=== PATIENT | female | born 1980 | race Caucasian/White ===

== ENCOUNTER → 2018-07-21 | Outpatient (CLI) | payer BC ==
--- NOTE | 2018-07-21 12:13 | MM ---
Reason for exam: screening (asymptomatic). Baseline mammogram. History: Took hormonal contraceptives for 10 years. Physical Findings: Nurse Summary: 2 x 3cm nodule in the right breast at 12 o'clock, 1.5cm nodule in the right breast at 3 o'clock, 2 x 3cm nodule in the left breast at 12 o'clock, 1 x 5cm nodule in the left breast at 8 o'clock and various palpable noted at 3 o'clock (nurse ts). MG 3D Screening Mammo W/Cad Bilateral CC and MLO view(s) were taken. The breast tissue is extremely dense which could obscure a lesion on mammography. There are benign appearing round, oval, circumscribed masses throughout both breasts, at least 6 on the right and 4 on the left. These will be further characterized with ultrasound. These results were verbally communicated with the patient and result sheet given to the patient on 07/21/18. ASSESSMENT: Incomplete: need additional imaging evaluation, BI-RAD 0 RECOMMENDATION: Ultrasound of both breasts.
--- NOTE | 2018-07-21 12:17 | USB ---
Reason for exam: additional evaluation requested from abnormal screening. History: Took hormonal contraceptives for 10 years. Physical Findings: Breast exam preformed at baseline screening. US Breast Workup [place] Right complete breast ultrasound includes all four quadrants, the retroareolar region and axilla. Finding demonstrates a 2.9 x 3.8 x 2.2cm cystic cluster at 1 o'clock, a 0.7 x 0.6 x 0.7cm cystic lesion with thin septation at 2 o'clock and a 2.0 x 2.1 x 1.1cm mixed lesion at 2 o'clock. Left complete breast ultrasound includes all four quadrants, the retroareolar region and axilla. Finding demonstrates three mixed lesions measuring 1.8 x 2.2 x 0.9cm at 1 o'clock, 0.7 x 0.9 x 0.8cm at 2 o'clock, 1.6 x 1.1 x 0.4cm at 8 o'clock and 1.8 x 1.7 x 0.8cm at 9 o'clock. All demonstrate increase through transmission, complicated cysts. These results were verbally communicated with the patient and result sheet given to the patient on 07/21/18. ASSESSMENT: Benign, BI-RAD 2 RECOMMENDATION: Return to routine screening mammogram schedule for both breasts.
== END | disposition home or self-care (01) ==
LOC: RADMAMWWP 09:38
PROVIDERS: ATTEND Obstetrics & Gynecology
DX: Z12.31 Encounter for screening mammogram for malignant neoplasm of breast (principal); R92.8 Other abnormal and inconclusive findings on diagnostic imaging of breast
CPT/HCPCS: 77063; 77067

== ENCOUNTER → 2020-08-15 | Outpatient (CLI) | payer BC ==
--- NOTE | 2020-08-16 10:00 | MM ---
Reason for exam: screening (asymptomatic). Last mammogram was performed 2 years and 1 month ago. History: Took hormonal contraceptives for 10 years. Physical Findings: A clinical breast exam by your physician is recommended on an annual basis and results should be correlated with mammographic findings. MG 3D Screening Mammo W/Cad Bilateral CC and MLO view(s) were taken. Prior study comparison: July 21, 2018, bilateral MG 3d screening mammo w/cad. The breast tissue is extremely dense which could obscure a lesion on mammography. Finding: There is a 30 mm circumscribed round mass in the posterior position of the right breast and additional smaller newer round lesions right breast. There is a chronic nodularity in the left breast. ASSESSMENT: Incomplete: need additional imaging evaluation, BI-RAD 0 RECOMMENDATION: Ultrasound of both breasts. [facility] will attempt to contact patient to return for ultrasound.
== END | disposition home or self-care (01) ==
LOC: RADMAMWWP 10:29
PROVIDERS: ATTEND Obstetrics & Gynecology
DX: Z12.31 Encounter for screening mammogram for malignant neoplasm of breast (principal)
CPT/HCPCS: 77063; 77067

== ENCOUNTER → 2020-08-22 | Outpatient (CLI) | payer BC ==
--- NOTE | 2020-08-23 08:50 | USB ---
Reason for exam: additional evaluation requested from abnormal screening. History: Took hormonal contraceptives for 10 years. Physical Findings: Nurse Summary: nodular throughout, patient reports cysts history (nurse db). US Breast BILAT Right complete breast ultrasound includes all four quadrants, the retroareolar region and axilla. Finding demonstrates a 1.4 x 1.2 x 0.5cm axilla node, a 0.9 x 0.9 x 0.6cm oval, hypoechoic, circumscribed lesion at 1 o'clock debris filled cyst or fibroadenoma, 6 month follow up recommended, a 2.0 x 2.5 x 1.0cm oval, cystic lesion at 2 o'clock, a 2.6 x 3.1 x 1.3cm oval, cystic lesion at 3 o'clock, duct ectasia at 8 o'clock, a 1.2 x 1.2 x 0.9cm oval, cystic lesion at 10 o'clock and a 2.9 x 2.0 x 1.0cm oval, cystic cluster at 11 o'clock. Left complete breast ultrasound includes all four quadrants, the retroareolar region and axilla. Finding demonstrates a 1.3 x 1.7 x 0.7cm oval, cystic cluster at 2 o'clock, a 1.2 x 0.9 x 0.7cm oval, cystic cluster at 9 o'clock, a 0.8 x 0.9 x 0.8cm oval, cystic lesion at 10 o'clock, debris and a 1.3 x 0.8 x 0.4cm oval, cystic cluster at 10 o'clock. These results were verbally communicated with the patient and result sheet given to the patient on 08/22/20. ASSESSMENT: Probably benign, BI-RAD 3 RECOMMENDATION: Ultrasound of the right breast in 6 months. (1 o'clock)
== END | disposition home or self-care (01) ==
LOC: RADUSWWP 14:54
PROVIDERS: ATTEND Obstetrics & Gynecology
DX: R92.8 Other abnormal and inconclusive findings on diagnostic imaging of breast (principal)

== ENCOUNTER → 2021-02-23 | Outpatient (CLI) | payer BC ==
--- NOTE | 2021-02-23 10:57 | USB ---
Reason for exam: follow-up at short interval from prior study. History: Took hormonal contraceptives for 10 years. Physical Findings: Nurse did not find any significant physical abnormalities on exam. US Breast Limited RT Technologist: Melissa Irene Right limited breast ultrasound including focal area of concern, retroareolar and axilla demonstrates a 0.8 x 0.8 x 0.6cm circumscribed lesion at 1 o'clock, slightly smaller and a 3.0 x 3.2 x 1.2cm oval, cystic lesion at 2 o'clock. Scanned 12-2 o'clock. Multiple cysts. These results were verbally communicated with the patient and result sheet given to the patient on 02/23/21. ASSESSMENT: Probably benign, BI-RAD 3 RECOMMENDATION: Follow-up diagnostic mammogram of both breasts in 6 months. Ultrasound of the right breast in 6 months. Manage patient on a clinical basis.
== END | disposition home or self-care (01) ==
LOC: RADUSWWP 09:30
PROVIDERS: ATTEND Obstetrics & Gynecology
DX: N60.01 Solitary cyst of right breast (principal)

== ENCOUNTER → 2021-09-03 | Outpatient (CLI) | payer BC ==
--- NOTE | 2021-09-04 08:53 | MM ---
Reason for exam: additional evaluation requested from prior study. Last mammogram was performed 1 year and 1 month ago. History: Took hormonal contraceptives for 10 years. Physical Findings: A clinical breast exam by your physician is recommended on an annual basis and results should be correlated with mammographic findings. MG 3D Diag Mammo W/Cad [place] Bilateral CC and MLO view(s) were taken. Prior study comparison: August 15, 2020, bilateral MG 3d screening mammo w/cad. July 21, 2018, bilateral MG 3d screening mammo w/cad. The breast tissue is heterogeneously dense. This may lower the sensitivity of mammography. There is chronic nodularity bilaterally. No significant new findings when compared with previous films. Results were given to the patient verbally at the time of the exam. ASSESSMENT: Incomplete: need additional imaging evaluation, BI-RAD 0 RECOMMENDATION: Ultrasound of the right breast.
--- NOTE | 2021-09-04 08:54 | USB ---
Reason for exam: additional evaluation requested from abnormal screening. History: Took hormonal contraceptives for 10 years. Physical Findings: A clinical breast exam by your physician is recommended on an annual basis and results should be correlated with mammographic findings. US Breast Limited RT Right limited breast ultrasound including focal area of concern, retroareolar and axilla demonstrates a 0.8 x 0.6 x 0.8cm mixed lesion at 1 o'clock, 5cm from nipple and a 4.0 x 1.4 x 3.6cm cystic lesion at 2 o'clock, 3cm from nipple. Multiple cystic areas. Results were given to the patient verbally at the time of the exam. ASSESSMENT: Benign, BI-RAD 2 RECOMMENDATION: Routine screening mammogram of both breasts in 1 year.
== END | disposition home or self-care (01) ==
LOC: RADMAMWWP 14:18
PROVIDERS: ATTEND Family Medicine
DX: R92.8 Other abnormal and inconclusive findings on diagnostic imaging of breast (principal)
CPT/HCPCS: 77062; 77066

== ENCOUNTER → 2022-09-04 | Outpatient (CLI) | payer BC ==
--- NOTE | 2022-09-05 07:33 | MM ---
Reason for Exam: Screening (asymptomatic). Last screening mammogram was performed 12 month(s) ago. Patient History: Menarche at age 15. First Full-Term at age 28. Patient has history of breast feeding. Patient used Hormonal Contraceptives for 10 years. Maternal uncle had breast cancer, age 47. Last menstrual period: 08/07/2022 Risk Values: Angeles 5 year model risk: 0.7%. NCI Lifetime model risk: 10.0%. Prior Study Comparison: 07/21/2018 Bilateral Screening Mammogram, [facility]. 08/15/2020 Bilateral Screening Mammogram, [facility]. 09/03/2021 Bilateral Diagnostic Mammogram, [facility]. Tissue Density: The breast tissue is extremely dense which could obscure a lesion on mammography. Findings: Analyzed By CAD. There is suggestion of new 14 mm obscured round mass just posterior to stable 9 mm round mass in the left breast cc slice 19. There are larger distinct masses in the right breast lower inner quadrant not clearly seen on most recent prior mammogram. Overall Assessment: Incomplete: need additional imaging evaluation, BI-RAD 0 Management: Diagnostic Breast Ultrasound of both breasts. Targeted bilateral breast ultrasound. Patient should continue monthly self-breast exams. A clinical breast exam by your physician is recommended on an annual basis. This exam should not preclude additional follow-up of suspicious palpable abnormalities. Note on Angeles scores and lifetime risk: 1. A Angeles score greater than 3% is considered moderate risk. If this is the case, consider specialist referral to assess eligibility for a risk reducing agent. 2. If overall lifetime risk for the development of breast cancer is 20% or higher, the patient may qualify for future screening with alternating mammogram and breast MRI. Electronically signed and approved by: Tam Weber M.D.
== END | disposition home or self-care (01) ==
LOC: RADMAMWWP 10:52
PROVIDERS: ATTEND Internal Medicine
DX: Z12.31 Encounter for screening mammogram for malignant neoplasm of breast (principal); Z80.3 Family history of malignant neoplasm of breast
CPT/HCPCS: 77063; 77067

== ENCOUNTER → 2022-09-19 | Outpatient (CLI) | payer BC ==
--- NOTE | 2022-09-19 12:44 | USB ---
Reason for Exam: Additional evaluation requested from abnormal screening. Patient History: Menarche at age 15. First Full-Term at age 28. Patient has history of breast feeding. Patient used Hormonal Contraceptives for 10 years. Maternal uncle had breast cancer, age 47. Risk Values: Angeles 5 year model risk: 0.7%. NCI Lifetime model risk: 10.0%. Technique: Method: Targeted. Prior Study Comparison: 08/15/2020 Bilateral Screening Mammogram, [facility]. 09/03/2021 Bilateral Diagnostic Mammogram, [facility]. 09/04/2022 Bilateral MG 3D screening mammo w/cad, [facility]. Findings: The lower inner quadrant of the right breast, the medial section of the breast of the left breast, the axilla of both breasts and the retroareolar of both breasts were scanned. Right: * Targeted ultrasound lower quadrant 3:00 to 6:00 including the subareolar region and axilla. * Dense tissues present throughout. * At the 3:00 position, 2 cm from the nipple, there is a benign 2.4 cm cyst. * An additional adjacent benign 8 mm cyst is present. * At the 5:00 position, 4 cm from the nipple, there is a hypoechoic lesion measuring 7 x 6 x 5 mm. There is a well-defined posterior wall with transmission. Suspected cyst with a either artifact or internal renal. * No other solid or cystic lesion. Left: * Targeted ultrasound medial half from 6:00 to 12:00 including the subareolar region and axilla. * At the 8:00 position, 6 cm from the nipple, there is an oval circumscribed hypoechoic area surrounded by dense tissue. Possible prominent fat lobule measuring 1.2 x 1.1 x 0.4 cm. * At the 9:00 position 5 cm from the nipple, there are a couple of benign clustered cysts present measuring 1.4 and 1.0 cm. * Couple additional benign cysts are present, for example, 12:00 position, 4 cm from the nipple measuring 1.1 cm. Overall Assessment: Benign, BI-RAD 2 Management: Screening Mammogram of both breasts in 1 year. A clinical breast exam by your physician is recommended on an annual basis and results should be correlated with mammographic findings. This exam should not preclude additional follow-up of suspicious palpable abnormalities. Results were given to the patient verbally at the time of exam. Electronically signed and approved by: Kostas Mary M.D. Radiologist
== END | disposition home or self-care (01) ==
LOC: RADUSWWP 10:48
PROVIDERS: ATTEND Internal Medicine
DX: R92.8 Other abnormal and inconclusive findings on diagnostic imaging of breast (principal); Z80.3 Family history of malignant neoplasm of breast

== ENCOUNTER → 2023-09-22 | Outpatient (CLI) | payer BC ==
--- NOTE | 2023-09-26 08:20 | MM ---
Reason for Exam: Screening (asymptomatic). Last screening mammogram was performed 12 month(s) ago. Patient History: Menarche at age 15. First Full-Term at age 28. Patient has history of breast feeding. Patient used Hormonal Contraceptives for 10 years. Maternal uncle had breast cancer, age 47. Last menstrual period: 08/23/2023 Risk Values: Angeles 5 year model risk: 0.7%. NCI Lifetime model risk: 9.9%. Prior Study Comparison: 08/15/2020 Bilateral Screening Mammogram, [facility]. 09/03/2021 Bilateral Diagnostic Mammogram, [facility]. 09/04/2022 Bilateral MG 3D screening mammo w/cad, [facility]. Tissue Density: The breasts are extremely dense, which lowers the sensitivity of mammography. Findings: Analyzed By CAD. Right breast: Stable fibroglandular tissue. There is no suspicious group of microcalcifications or new suspicious mass. Left breast: There is no suspicious group of microcalcifications or new suspicious mass. Overall Assessment: Benign, BI-RAD 2 Management: Screening Mammogram of both breasts in [address] [facility] will attempt to contact patient to return for supplemental views and ultrasound if indicated. Patient should continue monthly self-breast exams. A clinical breast exam by your physician is recommended on an annual basis. This exam should not preclude additional follow-up of suspicious palpable abnormalities. Note on Angeles scores and lifetime risk: 1. A Angeles score greater than 3% is considered moderate risk. If this is the case, consider specialist referral to assess eligibility for a risk reducing agent. 2. If overall lifetime risk for the development of breast cancer is 20% or higher, the patient may qualify for future screening with alternating mammogram and breast MRI. Electronically signed and approved by: Jacobo Jules DO
== END | disposition home or self-care (01) ==
LOC: RADMAMWWP 09:25
PROVIDERS: ATTEND Family Medicine
DX: Z12.31 Encounter for screening mammogram for malignant neoplasm of breast (principal); Z80.3 Family history of malignant neoplasm of breast
CPT/HCPCS: 77063; 77067

== ENCOUNTER → 2024-07-14 | Outpatient (CLI) | payer BC ==
--- NOTE | 2024-07-14 07:54 | US ---
EXAMINATION TYPE: US abdomen limited DATE OF EXAM: 07/14/2024 COMPARISON: NONE CLINICAL INDICATION: Female, 44 years old with history of R74.8 ELEVATED LIVER ENZYMES; Elevated live r enzymes TECHNIQUE: Grayscale and color Doppler imaging of the right upper quadrant was performed. FINDINGS: EXAM MEASUREMENTS: Liver Length: 14.1 cm Gallbladder Wall: 0.2 cm CBD: 0.3 cm Right Kidney: 10.7 x 3.8 x 5.1 cm Pancreas: Tail obscured by overlying bowel gas Liver: isoechoic/hypoechoic lesion = 3.9 x 3.8 x 4.5cm Gallbladder: non-mobile hyperechoic areas Evidence for sonographic Garnett's sign: no CBD: wnl Right Kidney: No evidence of hydronephrosis Heterogeneous hyperechoic appearance of the liver. There is a focal 4.5 cm x 3.9 x 3.8 oval slightly hypodense lesion in the periphery of the liver. Diffuse tiny polyps scattered throughout the gallblad izabella seen. No shadowing mobile gallstones. IMPRESSION: There is 4.5 cm slightly hypoechoic solid mass in the liver. Malignant etiology cannot be excluded. Advise liver protocol MRI without and with contrast to further evaluate and characterize. [facility], , 07/14/2024 7:52 AM
== END | disposition home or self-care (01) ==
LOC: RADUSWWP 06:47
PROVIDERS: ATTEND Internal Medicine
DX: R16.0 Hepatomegaly, not elsewhere classified (principal); R74.8 Abnormal levels of other serum enzymes
CPT/HCPCS: 76705

== ENCOUNTER → 2024-07-21 | Outpatient (CLI) | payer BC ==
--- NOTE | 2024-07-23 13:44 | MR ---
EXAMINATION TYPE: MR liver wo/w con DATE OF EXAM: 07/21/2024 8:43 AM COMPARISON: 07/14/2024 CLINICAL INDICATION: Female, 44 years old with history of R16.0 LIVER MASS, Elevated liver enzymes, a bnormal US. TECHNIQUE: Multiplanar multi-sequence imaging was performed without contrast. Post contrast imaging was performed. Post IV contrast subtraction images were also submitted for review. IV Contrast: 6 mL Gadobutrol FINDINGS: LOWER CHEST: No gross irregularity. ABDOMEN Liver: No evidence for hepatic steatosis or cirrhosis. Right hepatic lobe dome lesion which is high T 2 signal measuring 41 x 37 x 45 mm which demonstrates progressive peripheral discontinuous enhancemen t. There is a simple appearing cyst immediately posterior to this in the dome which does not demonstr ate enhancement. Gallbladder and Bile ducts: No evidence for ductal dilation, or biliary stricture or evidence of chol edocholithiasis. The gallbladder is within normal limits. Pancreas: Pancreatic uncinate process to 6 mm high T2 signal cystic lesion without postcontrast enhan cement. Series 411 image 13. No ductal dilation. No evidence for solid mass. Spleen: Normal for size. Adrenal glands: Unremarkable. Kidneys: No evidence for obstructive uropathy. No suspicious renal masses. Stomach and Bowel: No evidence for bowel wall thickening or evidence for obstruction. Retroperitoneum/Peritoneum: No evidence of pneumoperitoneum or free fluid. Vasculature: No aortic aneurysm. Musculoskeletal: The osseous structures appear intact. Severe pectus excavatum. Glandular tissue with scattered cysts in the breasts. Lymph Nodes: No gross evidence for lymphadenopathy. Abdominal wall: Unremarkable. Follicular changes to the ovaries visualized coronal T2 weighted imaging. IMPRESSION: 1. Hepatic dome lesion measuring up to 45 mm which is most compatible with hepatic hemangioma. 2. Satellite lesion most compatible with simple appearing cyst. 3. Pancreatic uncinate process 6 mm cyst likely representing side branch intraductal papillary mucin ous neoplasm versus other cystic neoplasm. Consider one-year follow-up MRI abdomen and pelvis. 4. Severe pectus excavatum. 5. Fibrocystic changes in the breasts. [facility], , 07/23/2024 1:41 PM
== END | disposition home or self-care (01) ==
LOC: RADMRIMAIN 07:35
PROVIDERS: ATTEND Family Medicine
DX: R16.0 Hepatomegaly, not elsewhere classified (principal); Q67.6 Pectus excavatum; K86.2 Cyst of pancreas
CPT/HCPCS: 74183; A9585

== ENCOUNTER → 2024-08-30 | Outpatient (CLI) | payer BC ==
[2024-08-30 15:41] LABS: Basophils # (A) 0.02 X 10*3/uL (0.00-0.10); Basophils % (A) 0.3 %; Eosinophils # (A) 0.09 X 10*3/uL (0.04-0.35); Eosinophils % (A) 1.5 %; HGB 12.4 g/dL (12.0-15.0); Lymphocytes # (A) 1.51 X 10*3/uL (0.90-5.00); MCH 28.2 pg (27.0-32.0); MCHC 31.8 g/dL (32.0-37.0); MCV 88.6 FL (80.0-97.0); Mean Platelet Volume 9.9 FL (9.5-12.2); Monocytes # (A) 0.47 X 10*3/uL (0.20-1.00); Monocytes % (A) 7.8 %; NRBC Per 100 WBC 0 X 10*3/uL (0.00-0.01); Neutrophils # (A) 3.95 X 10*3/uL (1.80-7.70); Neutrophils % (A) 65.2 %; Platelet Count 346 X 10*3/uL (140-440); WBC 6.05 X 10*3/uL (4.50-10.00)
[2024-08-30 16:14] LABS: Hepatitis B Surface Antigen Nonreactive (Nonreactive); Hepatitis C IgG Antibody Nonreactive (Nonreactive)
[2024-08-30 16:38] LABS: Ceruloplasmin 30.2 mg/dL (20.0-60.0)
[2024-08-30 17:05] LABS: Protein, Total 6.6 g/dL (6.2-8.2)
[2024-08-31 11:33] LABS: Smooth Muscle Antibody 9 UNITS (<20)
== END | disposition home or self-care (01) ==
LOC: LABWHC1 10:01
PROVIDERS: ATTEND Internal Medicine Gastroenterology
DX: R74.8 Abnormal levels of other serum enzymes (principal); R79.0 Abnormal level of blood mineral
CPT/HCPCS: 36415; 81256; 81596; 82103; 82390; 83516; 84165; 85025; 86038; 86803; 87340